=== PATIENT | male | born 1950 | race Caucasian/White ===

== ENCOUNTER 2020-07-07 09:01 | Outpatient (CLI) | payer MEDICARE, OTHER, SELFPAY ==
--- NOTE | 2020-07-07 09:04 | CT_ITS ---
WS: [id number] LDCT LUNG CANCER SCREENING HISTORY: COPD/TOBACCO DEPENDENCE TECHNIQUE: Axial imaging performed from the apices to 1 cm below the costophrenic angles. Coronal and sagittal reformats are submitted with axial MIP series. All CT scans at [facility] use at least one of these dose optimization techniques: automated exposure control; mA and/or kV adjustment per patient size (includes targeted exams where dose is matched to clinical indication); or iterativ e reconstruction. DLP: 55.26 mGy.cm DIvol: 1.52 mGy COMPARISON: None available. Diagnostic quality: Satisfactory Lung Nodules: Large spiculated LEFT hilar soft tissue mass. Spiculated mass centered at the LEFT hilu m extending into the LEFT upper lobe measures 5.5 x 3.3 cm and extends over a length of 3.6 cm. Mass abuts the mid fissure. There is a component that extends into the LEFT upper lobe. There is encasemen t and mild narrowing of the proximal LEFT upper lobe bronchus. No postobstructive atelectasis. Increa sed soft tissue thickening and nodularity extends along the proximal LEFT lower lobe bronchovascular structures. Lungs: Chronic emphysema. No additional nodules are evident. No pleural effusion. Heart: Normal size. Minimal coronary artery calcification. Other findings: Mild atherosclerosis aorta. Pulmonary artery size is equal to the aorta. Mild fullnes s at the RIGHT hilum. Mild RIGHT convex curvature thoracolumbar spine. CT/CT lung screening [id number] IMPRESSION: LUNG-RADS: 4B-Suspicious FOLLOW UP: See Report Recommend follow-up chest CT with IV contrast, PET/CT imaging and pulmonary con sult with bronchoscopy. These findings are very suspicious for neoplasm and pos sible hilar adenopathy. OTHER FINDINGS (S MODIFIER): None.
== END 2020-07-07 09:02 | disposition home or self-care (01) ==
LOC: CT 09:02
PROVIDERS: PCP Internal Medicine; Visit Provider Internal Medicine
DX: Z12.2 Encounter for screening for malignant neoplasm of respiratory organs (principal); F17.201 Nicotine dependence, unspecified, in remission; J44.9 Chronic obstructive pulmonary disease, unspecified
CPT/HCPCS: G0297

== ENCOUNTER 2020-07-08 08:54 | Emergency (ER) | payer MEDICARE, OTHER, SELFPAY ==
[2020-07-08 08:54] VITALS: BP 111/65; PULSE 65; RESP 18; TEMP 36.3; O2SAT 99; BMI 28.1
--- NOTE | 2020-07-08 08:58 | CT_ITS ---
WS: [id number] CT CHEST WITH INTRAVENOUS CONTRAST HISTORY: lung mass on screening CT chest TECHNIQUE: Contiguous 5 mm axial imaging performed on the thorax. Coronal and sagittal reformats are submitted. All CT scans at [facility] use at least one of these dose optimization techniq ues: automated exposure control; mA and/or kV adjustment per patient size (includes targeted exams wh ere dose is matched to clinical indication); or iterative reconstruction. CONTRAST: Visipaque 320; 95 mL IV. DLP: 756.43 mGy.cm COMPARISON: 07/07/2020. Lungs and central airway: Soft tissue mass centered over the LEFT hilum extending into the LEFT upper lobe. Soft tissue mass partially encases and narrows LEFT upper lobe bronchus and nearly completely encases the proximal LEFT lower lobe pulmonary artery. Mass measures 5.1 x 3.3 cm and extends over a length of 3.7 cm. Margins are spiculated. No additional pulmonary mass or nodule. Moderate emphysema. Pleura: Normal. No pleural effusion. Heart and pericardium: Normal size heart with no pericardial effusion. Mediastinum and sola: Otherwise small mediastinal and hilar lymph nodes. No adenopathy. Vessels: Mild atherosclerosis aorta. Normal size pulmonary artery. Mild coronary artery atheroscleros is. Chest wall and lower neck: No soft tissue masses. Upper abdomen: Several large low-attenuation masses in the liver. The largest in the posterior RIGHT lobe of the liver measures 8.2 x 9.2 cm. This mass abuts the diaphragmatic surface. There is a smalle r posterior diaphragmatic mass. More anteriorly in the LEFT medial lobe measures 5.2 x 4.0 cm mass. T hese masses are are displacing the adjacent vascular structure and suspicious for metastatic lesions. The visualized adrenal glands are negative. Osseous structures: S-shaped curvature thoracolumbar spine. CT/CT chest w con* [id number] IMPRESSION: 1. Large spiculated neoplastic mass LEFT upper lobe centered close to the hilu m measures 5.1 x 3.3 x 3.7 cm. Most likely due to lung cancer. Recommend bronch oscopy for further evaluation. 2. Several large hypoattenuating masses in the liver suspicious for metastatic disease. 3. Chronic emphysema.
--- NOTE | 2020-07-08 09:01 | W.ED.SYNCOPE ---
HPI - Syncope General: Chief Complaint: Syncope Stated Complaint: SOB/SYNCOPAL EPISODE Time Seen by Provider: 07/08/20 08:55 History of Present Illness: HPI narrative: 69-year-old male who was at his primary care doctor's office he recently had a screening CT scan of the chest. On this they found a 5 x 3 x 3 left hilar mass he was informed of this this morning and had a vasovagal episode after apnea loss of control of urine. There is no tonic-clonic seizure movements he is not postictal according to Dr. Lomeli at the office. He was directed here for further evaluation this morning. MD complaint: loss of consciousness Onset (ago): minute(s) Prodromal symptoms: heart racing Witnessed: Yes - by Bystander Context: at rest Associated symptoms: Deny abdominal pain, chest pain, fever(s) or nausea History: other (recent dx of lung mass) Treatments prior to arrival: none Review of Systems Const: Denies: fever(s), chills, body aches, change in appetite, fatigue or malaise ENMT: Denies: throat pain, ear or mastoid pain, nasal discharge or nasal congestion Card: Denies: chest pain, edema, dyspnea on exertion or orthopnea Resp: Denies: dyspnea, productive cough or non-productive cough GI: Denies: abdominal pain, nausea, vomiting, hematemesis, coffee ground emesis, diarrhea, constipation, bloating, hematochezia or melena : Denies: flank pain, dysuria, urinary frequency or urinary urgency Skin/Breast: Denies: rash or pruritus Physical Exam Const: COMMON NORMALS: no acute distress GENERAL APPEARANCE: cooperative and comfortable ORIENTATION/CONSCIOUSNESS: Yes awake, Yes oriented to person, Yes oriented to place and Yes oriented to time HENMT: COMMON NORMALS: normocephalic, atraumatic and hearing grossly normal bilaterally HEAD & SCALP: normocephalic and atraumatic Neck/C-Spine: COMMON NORMALS: no JVD Resp: COMMON NORMALS: normal respiratory effort, No retractions, No use of accessory muscles and clear to auscultation bilaterally AUSCULTATION: clear to auscultation bilaterally Cardio: COMMON NORMALS: no JVD, regular rate, regular rhythm and No murmurs present (Cardio) RATE: regular rate RHYTHM: regular rhythm GI: COMMON NORMALS: Soft to palpation and No hepatosplenomegaly present AUSCULTATION: Yes normoactive bowel sounds PALPATION: Yes Soft to palpation, No Tenderness to palpation present (GI), No Guarding due to palpation present (GI) and Yes No hepatosplenomegaly present Extremity: COMMON NORMALS: normal to inspection, capillary refill normal, no clubbing, cyanosis or edema, no calf tenderness and no pedal edema Neuro: SENSORIUM/ORIENTATION: Yes oriented to person, Yes oriented to place and Yes oriented to time Skin: COMMON NORMALS: no rashes or lesions noted GENERAL SKIN EXAM: no rashes or lesions noted Course Vital Signs: Vital signs: Vital Signs Temperature 97.4 F L 07/08/20 08:54 Pulse Rate 80 07/08/20 12:30 Respiratory Rate 20 H 07/08/20 12:30 Blood Pressure 118/84 07/08/20 12:30 Pulse Oximetry 97 07/08/20 12:30 MDM - Syncope MDM Narrative: Medical decision making narrative: Reviewed with the patient and believe he has mets to the liver as well he will need bronchoscopy as per recommendation of the CT we made an appointment with him through her case management director with Dr. jax Ospina. He is otherwise feeling a little better now he like to go home suspect he had a vasovagal episode at his doctor's office over the stress of the diagnosis. If he has any further problems return to the emergency room. Lab Data: Labs: Lab Results 07/08/20 07/08/20 Range/Units 09:58 09:58 WBC 7.9 (4.0-10.0) 10^3/ uL RBC 4.42 (4.1-5.3) 10^6/u L Hgb 12.8 (11.7-16.6) g/dL Hct 40.8 L (42.0-52.0) % MCV 92.3 (80-94) fL MCH 29.0 (28.0-34.0) pg MCHC 31.4 (30.0-36.0) g/dL RDW 11.9 L (12.1-15.1) % Plt Count 183 (130-400) 10^3/c mm MPV 8.5 (7.4-10.4) fL Neut % (Auto) 57.0 % Lymph % (Auto) 29.9 % Payne % (Auto) 8.8 % Eos % (Auto) 2.0 % Baso % (Auto) 0.8 % Neut # (Auto) 4.49 (1.8-7.7) 10^3/u L Lymph # (Auto) 2.4 (0.8-4.8) 10^3/u L Payne # (Auto) 0.7 (0.2-0.9) 10^3/u L Eos # (Auto) 0.2 (0.0-0.8) 10^3/u L Baso # (Auto) 0.1 (0.0-0.1) 10^3/u L Nucleated RBC % (a uto) 0 % Nucleated RBCs # 0.0 /100WBC Sodium 133 L (136-145) mmol/L Potassium 3.8 (3.5-5.1) mmol/L Chloride 97 L (98-107) mmol/L Carbon Dioxide 24 (22-29) mmol/L Anion Gap 15.8 (5-19) BUN 10 (8-23) mg/dL Creatinine 1.4 H (0.7-1.2) mg/dL GFR Calculation 50.5 L (90-130) mL/min Glucose 79 (65-115) mg/dL Calculated Osmolal ity 274 L (285-295) mOsm/k g Calcium 9.0 (8.5-10.5) mg/dL Total Bilirubin 0.8 (0.15-1.2) mg/dL AST 115 H (0-40) U/L ALT 96 H (0-41) U/L Alkaline Phosphata se 406 H (40-130) IU/L Total Protein 6.5 L (6.6-8.7) g/dL Albumin 3.6 (3.5-5.2) g/dL Globulin 2.9 (1.3-4.6) g/dL Discharge Plan Discharge Patient Disposition: Home Clinical Impression: Vasovagal syncope, Metastatic lung cancer (metastasis from lung to other site) Condition: Stable Prescriptions: No Action desmopressin 0.2 mg Tablet See Rx Instructions .ROUTE .COMPLEX RF: 0 levothyroxine 75 mcg Tablet 75 mcg PO DAILY RF: 0 hydrocortisone 10 mg Tablet See Rx Instructions .ROUTE .COMPLEX RF: 0 testosterone cypionate 200 mg/mL Oil See Rx Instructions .ROUTE .COMPLEX RF: 0 Tylenol PM Extra Strength 25-500 mg Tablet 2 tab PO BEDTIME PRN (Reason: UNKNOWN) RF: 0 Zoloft 50 mg Tablet 50 mg PO DAILY RF: 0 Vitamin D3 50 mcg (2,000 unit) Tablet 50 mcg PO DAILY RF: 0 Prevagen 1 tab PO DAILY RF: 0 Discharge Orders: Discharge Order (Routine); Ordered 07/08/20 Ordered By: Sacha Sung Referrals: Cece Yang MD [Primary Care Provider] - Activity Restrictions/Additional Instructions: You have an appointment with Dr. jax Ospina the wine maker on July 10 at 12[address] [facility] [place] at [facility]. Discharge Date/Time: 07/08/20 12:50 Coding Level of Care Code ED Stem Mounter for Chg Fwd Exam Comprehensive
[2020-07-08 10:03] LABS: Basophils # 0.1 10^3/uL (0.0-0.1); Basophils % 0.8 %; Eosinophils # 0.2 10^3/uL (0.0-0.8); Hematocrit 40.8 % (42.0-52.0); Hemoglobin 12.8 g/dL (11.7-16.6); Lymphocytes # 2.4 10^3/uL (0.8-4.8); Lymphocytes % 29.9 %; Mean Corpuscular HGB Conc 31.4 g/dL (30.0-36.0); Mean Corpuscular Volume 92.3 fL (80-94); Mean Platelet Volume 8.5 fL (7.4-10.4); Monocytes # 0.7 10^3/uL (0.2-0.9); Monocytes % 8.8 %; Neutrophils # 4.49 10^3/uL (1.8-7.7); Nucleated Red Blood Cells % 0 %; Platelet Count 183 10^3/cmm (130-400); Red Blood Count 4.42 10^6/uL (4.1-5.3); Red Cell Distribution Width 11.9 % (12.1-15.1); White Blood Count 7.9 10^3/uL (4.0-10.0)
[2020-07-08 10:20] LABS: Alanine Aminotransferase 96 U/L (0-41); Albumin Level 3.6 g/dL (3.5-5.2); Alkaline Phosphatase 406 IU/L (40-130); Anion Gap 15.8 (5-19); Aspartate Amino Transferase 115 U/L (0-40); Blood Urea Nitrogen 10 mg/dL (8-23); Carbon Dioxide 24 mmol/L (22-29); Chloride 97 mmol/L (98-107); Globulin 2.9 g/dL (1.3-4.6); Glomerular Filtration Rate 50.5 mL/min (90-130); Glucose 79 mg/dL (65-115); Osmolality Calculated 274 mOsm/kg (285-295); Potassium 3.8 mmol/L (3.5-5.1); Sodium 133 mmol/L (136-145); Total Bilirubin 0.8 mg/dL (0.15-1.2); Total Protein 6.5 g/dL (6.6-8.7)
[2020-07-08] MEDS: iodixanol 320 mg/mL 100mL Btl IV (10:38)
--- NOTE | 2020-07-08 10:42 | CT_ITS ---
WS: [id number] CT HEAD NONCONTRAST HISTORY: AMS/ LOC TECHNIQUE: Contiguous axial imaging performed through the brain in 2.5 mm imaging. Bone and soft tiss ue windows. Sagittal and coronal reformats reviewed. All CT scans at [facility] use at ast one of these dose optimization techniques: automated exposure control; mA and/or kV adjustment pe r patient size (includes targeted exams where dose is matched to clinical indication); or iterative r econstruction. DLP: 780.3 mGy.cm COMPARISON: 06/22/[address] was performed after IV contrast injection. Small areas of hemorrhage may be obscured by the contrast. Small lacunar infarct LEFT basal ganglia. Small lacunar infarct in the RIGHT caudate body. Mild atrophy. Mild chronic microvascular ischemic disease. Ventricles: Mildly enlarged ventricles. Patient is status post transsphenoidal resection of the pituitary gland. Sella turcica is empty. Paranasal sinuses: Mild mucoperiosteal thickening in the sphenoid sinuses. Dense inspissated material in the RIGHT sphenoid sinus with calcification. Selective 2012 a mild progression suggesting chronic sinusitis. Mastoid air cells: Well pneumatized. Calvarium and scalp: Skull is intact with no soft tissue edema or swelling. Heavy calcification in the vertebral arteries and intracranial carotid arteries. CT/CT head wo con* [id number] IMPRESSION: 1. Mild atrophy and chronic ischemic disease. 2. Small lacunar infarcts in the LEFT basal ganglia. 3. Transsphenoidal resection of pituitary gland.
--- NOTE | 2020-07-08 10:45 | DCPLANNER ---
sponsorship manager was asked to schedule a follow up appointment for patient with pulmonology. sponsorship manager called [facility], spoke Carolin, gave clinic patients information. A follow up appointment was scheduled for , July 10, 2020 at 12:[address] Beckham. sponsorship manager informed ED physician of the scheduled appointment.
[2020-07-08 12:30] VITALS: BP 118/84; PULSE 80; RESP 20; O2SAT 97
--- NOTE | 2020-07-08 12:35 | PC.NURSE ---
iv removed in rac. catheter intact pressure dressing applied with instructions to remove.
--- NOTE | 2020-08-01 17:59 | DCPLANNER ---
Patient had a follow up appointment scheduled for 07.10.20 with [facility] - appointment was cancelled.
== END 2020-07-08 12:50 | disposition home or self-care (01) ==
PROVIDERS: Emergency Provider Family Medicine; PCP Internal Medicine
DX: R55 Syncope and collapse (principal); C34.90 Malignant neoplasm of unspecified part of unspecified bronchus or lung; C79.9 Secondary malignant neoplasm of unspecified site
CPT/HCPCS: 12345; 36415; 70450; 71260; 80053; 85025; 99281; 99283; Q9967

== ENCOUNTER 2020-07-18 09:57 | Outpatient (CLI) | payer MEDICARE, OTHER, SELFPAY ==
[2020-07-17 14:36] VITALS: BMI 27.8
[2020-07-18] VITALS (8 sets, daily range): BP systolic 120–146; BP diastolic 74–88; PULSE 53–69; RESP 16–20; TEMP 36.2–36.3; O2SAT 97–100
--- NOTE | 2020-07-18 10:42 | US_ITS ---
WS: [id number] Ultrasounded guided biopsy of right lobe of liver lesion, 07/18/2020 Clinical Data: LUNG MASS, liver mass. Comparison: PET scan, 07/12/2020. Findings: The patient was informed of the procedure and possible complications. Then an intercostal space was c leansed with alcohol. A 30-gauge needle filled with 5 mL of 1% lidocaine with epinephrine infiltrated the skin and the subcutaneous tissues on the right side of the abdomen. A small incision was made at the site of the infiltration. An 18-gauge Bard biopsy device was used to obtain 3 samples from the l arge lesion in the right lobe of the liver. The samples were placed into formalin and submitted to [facility] for analysis.. The patient experienced no complications. US/US biopsy liver [id number] Impression: Satisfactory ultrasound-guided biopsy of lesion of right lobe of the liver.
[2020-07-18] MEDS: sodium chloride 0.9% 1,000 ML 30 ML IV (11:32)
[2020-07-18 11:59] LABS: INR 0.99 (0.8-1.2)
[2020-07-18] MEDS: fentaNYL 50 mcg/mL INJ 2mL 25 MCG IVP ×2 (12:15→12:22)
[2020-07-18] MEDS: midazolam 1 mg/mL INJ 2 mL IVP ×2 (12:16→12:22)
[2020-08-25 10:47] LABS: PD-L1 (Clone 22C3) by IHC BBPL See Report
== END 2020-07-18 09:58 | disposition home or self-care (01) ==
PROVIDERS: Radiology Neuroradiology; PCP Internal Medicine; Visit Provider Internal Medicine
DX: R91.8 Other nonspecific abnormal finding of lung field (principal); R16.0 Hepatomegaly, not elsewhere classified
CPT/HCPCS: 36415; 47000; 76942; 85610; 88307; 88342; 96374; 96375; J2250; J3010; J7030

== ENCOUNTER 2020-07-18 14:23 | Emergency (ER) | payer MEDICARE, OTHER, SELFPAY ==
--- NOTE | 2020-07-18 14:28 | CT_ITS ---
WS: [id number] CT scan of the chest With IV contrast, CT scan of the abdomen and pelvis with IV contrast and witho ut oral contrast. Additional two-dimensional coronal and sagittal reconstruction was performed. 2019 Clinical Data: syncope Comparison: CT chest, 07/08/2020. DLP: 2462.[address] scans at [facility] use at least one of these dose optimization techniques: automat ed exposure control; mA and/or kV adjustment per patient size (includes targeted exams where dose is matched to clinical indication); or iterative reconstruction. Findings: Chest: The 5 cm mass in the left hilum extending into the midportion of the left lung has not changed. It is narrowing the left lower lobe bronchus. The right lung is not remarkable. No pneumonia or pneumothor ax is seen. The heart size is normal with no pericardial effusion. The trachea bifurcates normally into the bronc hi. The pulmonary arterial system and thoracic aorta demonstrate no abnormalities or dilatations. There is no axillary or significant mediastinal adenopathy. Abdomen/pelvis: The liver demonstrates several hypoattenuating masses. The large, 8.7 cm mass in the posterior aspect of the right lobe was biopsied and there is a small amount of air in this mass. No evidence of an in trahepatic hematoma is seen. There is no perihepatic ascites. The gallbladder, spleen, adrenal glands and pancreas are normal. The kidneys show equal bilateral contrast excretion with no cyst or masses. The abdominal aorta is normal in size. No appendicitis or diverticulitis is seen. The stomach, small bowel and colon are not remarkable. No abscess, adenopathy, ascites mass, obstruction or free air is seen. The bladder is unremarkable. No inguinal hernia is seen. There is a dextroscoliosis of the lower thoracic spine and a levoscoliosis of the lumbar spine. There is a left hip arthroplasty. CT/CT chest abd pel w con* Impression: 1. No change in left hilar mass. 2. Negative for pneumothorax. 3. Multiple low density lesions in the liver but no evidence of an intrahepatic hematoma or perihepatic ascites
--- NOTE | 2020-07-18 14:36 | ECG_ITS ---
[facility] Test Date: 2020-07-18 Pat Name: Pernell Watson Department: Room: Gender: Male Size Painter: : 1950 Requested By: Adele Kim Order Number: [id number] Jalyn MD: Albert Mendoza M.D. Measurements Intervals [place] Rate: 52 P: 59 AL: 158 QRS: 32 QRSD: 99 T: 83 QT: 509 QTc: 475 Interpretive Statements SINUS BRADYCARDIA MINIMAL ST DEPRESSION [0.025+ mV ST DEPRESSION] PROLONGED QT INTERVAL No previous ECG available for comparison Electronically Signed On 07-18-2020 18:37:14 CDT by Albert Mendoza M.D. [email or web address]
[2020-07-18] MEDS: iodixanol 320 mg/mL 100mL Btl IV (14:40)
[2020-07-18 14:47] VITALS: BP 120/48; PULSE 57; RESP 8; TEMP 36.4; O2SAT 100; BMI 29.6
[2020-07-18 14:54] LABS: Basophils # 0.1 10^3/uL (0.0-0.1); Basophils % 0.6 %; Eosinophils % 0.2 %; Hematocrit 37.9 % (42.0-52.0); Lymphocytes # 1.1 10^3/uL (0.8-4.8); Lymphocytes % 11.3 %; Mean Corpuscular HGB Conc 31.7 g/dL (30.0-36.0); Mean Corpuscular Hemoglobin 28.5 pg (28.0-34.0); Mean Platelet Volume 8.8 fL (7.4-10.4); Monocytes # 0.6 10^3/uL (0.2-0.9); Monocytes % 5.9 %; Neutrophils # 8.12 10^3/uL (1.8-7.7); Neutrophils % 80.9 %; Nucleated Red Blood Cells % 0 %; Platelet Count 233 10^3/cmm (130-400); Red Blood Count 4.21 10^6/uL (4.1-5.3); Red Cell Distribution Width 11.9 % (12.1-15.1)
[2020-07-18 14:56] VITALS: BP 120/48; PULSE 55; RESP 16; O2SAT 96
[2020-07-18 14:58] LABS: INR 0.95 (0.8-1.2)
[2020-07-18 15:00] LABS: Alanine Aminotransferase 88 U/L (0-41); Albumin Level 3.6 g/dL (3.5-5.2); Alkaline Phosphatase 460 IU/L (40-130); Anion Gap 16.1 (5-19); Aspartate Amino Transferase 94 U/L (0-40); Blood Urea Nitrogen 10 mg/dL (8-23); Calcium 8.8 mg/dL (8.5-10.5); Carbon Dioxide 23 mmol/L (22-29); Chloride 96 mmol/L (98-107); Glomerular Filtration Rate 66.8 mL/min (90-130); Glucose 107 mg/dL (65-115); Lipase 41 U/L (13-60); Osmolality Calculated 272 mOsm/kg (285-295); Potassium 4.1 mmol/L (3.5-5.1); Sodium 131 mmol/L (136-145); Total Bilirubin 0.5 mg/dL (0.15-1.2); Total Protein 5.6 g/dL (6.6-8.7)
[2020-07-18 15:01] LABS: Lactic Sepsis W/Reflex 1.7 mmol/L (0.5-2.2); Troponin(5th) Baseline 11 ng/L (0-15)
--- NOTE | 2020-07-18 15:03 | ED_ITS ---
HPI - Altered Mental Status General: Chief Complaint: Altered Mental Status Stated Complaint: decreased responsiveness Time Seen by Provider: 07/18/20 14:25 History of Present Illness: HPI narrative: 69-year-old male came to the emergency room after 30 minutes prior having a liver biopsy. On arrival he collapsed I was called to the bedside in a hallway bed patient was poorly responsive Dr. Coburn and I attended to him he had an acute abdomen and he was taken directly to CT. Initially he was not able to answer any questions. When I seen him after the CT was done he recalls having the liver biopsy done he is having some right upper quadrant discomfort in the area of the biopsy he is not having any chest pain and he is not having any difficulty breathing. He was recently diagnosed with lung cancer MD complaint: confusion and decreased responsiveness Onset (ago): minute(s) Severity: moderate Consistency of symptoms: Waxing and Waning Context: history of similar presentation and COPD Associated symptoms: Reports depression; Deny auditory hallucinations, visual hallucinations, delusions, homicidal ideation, racing thoughts or suicidal ideation Review of Systems Const: Denies: fever(s), chills, body aches, change in appetite, fatigue or malaise ENMT: Denies: throat pain, ear or mastoid pain, nasal discharge or nasal congestion Card: Denies: chest pain, edema, dyspnea on exertion or orthopnea Resp: Denies: dyspnea, productive cough or non-productive cough GI: Denies: abdominal pain, nausea, vomiting, hematemesis, coffee ground emesis, diarrhea, constipation, bloating, hematochezia or melena : Denies: flank pain, dysuria, urinary frequency or urinary urgency Skin/Breast: Denies: rash or pruritus Psych: Reports: depression; Denies: visual hallucinations, auditory hallucinations, suicidal ideation or homicidal ideation [facility] ED PFSH: Medical History (Updated 07/21/20 @ 14:05 by Sacha Sung DO) COPD (chronic obstructive pulmonary disease) Lung mass Syncope Surgical History (Updated 07/21/20 @ 14:05 by Sacha Sung DO) Hx of hernia repair Social History Smoking and tobacco status: former smoker Quit status (tobacco): has quit using tobacco Second hand smoke exposure: No Smoking risk assessment/counseling performed?: No Physical Exam Const: COMMON NORMALS: no acute distress GENERAL APPEARANCE: cooperative and comfortable ORIENTATION/CONSCIOUSNESS: Yes awake, Yes oriented to person, Yes oriented to place and Yes oriented to time HENMT: COMMON NORMALS: normocephalic, atraumatic, hearing grossly normal bilaterally, external ears normal, EAC's normal, TM's normal bilaterally, Normal nasal mucous membranes and turbinates present, moist oral mucous membranes and oropharynx normal HEAD & SCALP: normocephalic and atraumatic NOSE: Normal nasal mucous membranes and turbinates present EXTERNAL EAR: Yes external ears normal EXTERNAL AUDITORY CANAL: EAC's normal TYMPANIC MEMBRANE: TM's normal bilaterally Eye: COMMON NORMALS: Equal, round and reactive pupils present, EOMs intact b ilaterally, conjunctivae normal and no scleral icterus CONJUNCTIVA: Yes conjunctivae normal PUPIL: Yes Equal, round and reactive pupils present Neck/C-Spine: COMMON NORMALS: full ROM, no lymphadenopathy, supple and no JVD Lymph: LYMPHATIC: no lymphadenopathy noted and no lymphedema noted Resp: COMMON NORMALS: normal respiratory effort, No retractions, No use of accessory muscles and clear to auscultation bilaterally AUSCULTATION: clear to auscultation bilaterally Cardio: COMMON NORMALS: no JVD, regular rate, regular rhythm and No murmurs present (Cardio) RATE: regular rate RHYTHM: regular rhythm GI: COMMON NORMALS: Soft to palpation and No hepatosplenomegaly present AUSCULTATION: Yes normoactive bowel sounds PALPATION: Yes Soft to palpation, No Tenderness to palpation present (GI), No Guarding due to palpation present (GI) and Yes No hepatosplenomegaly present Extremity: COMMON NORMALS: normal to inspection, capillary refill normal, no clubbing, cyanosis or edema, no calf tenderness and no pedal edema Neuro: SENSORIUM/ORIENTATION: Yes oriented to person, Yes oriented to place and Yes oriented to time Psych: THOUGHT CONTENT: No delusions Skin: COMMON NORMALS: no rashes or lesions noted GENERAL SKIN EXAM: no rashes or lesions noted Course Vital Signs: Vital signs: Vital Signs Temperature 97.5 F L 07/18/20 14:47 Pulse Rate 53 L 07/18/20 18:40 Respiratory Rate 21 H 07/18/20 18:40 Blood Pressure 112/74 07/18/20 18:40 Pulse Oximetry 98 07/18/20 18:40 MDM - Altered Mental Status MDM Narrative: Medical decision making narrative: She had a similar presentat ion previously he completely is woken up we are initially concerned he may have had bleeding from his liver biopsy CT was negative. After time he was able to ambulate without difficulty he is anxious to go home he has had similar syncopal episodes when he has gotten highly stressful news such as recent diagnosis of lung cancer. As per his wishes will not discharge him home if he has any problems return immediately Lab Data: Labs: Lab Results 07/18/20 07/18/20 07/18/20 Range/Units 14:25 14:25 14:25 WBC 10.0 (4.0-10.0) 10^3/ uL RBC 4.21 (4.1-5.3) 10^6/u L Hgb 12.0 (11.7-16.6) g/dL Hct 37.9 L (42.0-52.0) % MCV 90.0 (80-94) fL MCH 28.5 (28.0-34.0) pg MCHC 31.7 (30.0-36.0) g/dL RDW 11.9 L (12.1-15.1) % Plt Count 233 (130-400) 10^3/c mm MPV 8.8 (7.4-10.4) fL Neut % (Auto) 80.9 % Lymph % (Auto) 11.3 % [place] % (Auto) 5.9 % Eos % (Auto) 0.2 % Baso % (Auto) 0.6 % Neut # (Auto) 8.12 H (1.8-7.7) 10^3/u L Lymph # (Auto) 1.1 (0.8-4.8) 10^3/u L [place] # (Auto) 0.6 (0.2-0.9) 10^3/u L Eos # (Auto) 0.0 (0.0-0.8) 10^3/u L Baso # (Auto) 0.1 (0.0-0.1) 10^3/u L Nucleated RBC % (a uto) 0 % Nucleated RBCs # 0.0 /100WBC PT 12.90 (12.1-14.9) SECO NDS INR 0.95 (0.8-1.2) Sodium 131 L (136-145) mmol/L Potassium 4.1 (3.5-5.1) mmol/L Chloride 96 L (98-107) mmol/L Carbon Dioxide 23 (22-29) mmol/L Anion Gap 16.1 (5-19) BUN 10 (8-23) mg/dL Creatinine 1.1 (0.7-1.2) mg/dL GFR Calculation 66.8 L (90-130) mL/min Glucose 107 (65-115) mg/dL Calculated Osmolal ity 272 L (285-295) mOsm/k g Lactic Acid (0.5-2.2) mmol/L Calcium 8.8 (8.5-10.5) mg/dL Total Bilirubin 0.5 (0.15-1.2) mg/dL AST 94 H (0-40) U/L ALT 88 H (0-41) U/L Alkaline Phosphata se 460 H (40-130) IU/L Troponin T Baselin e (0-15) ng/L Troponin T 120 Min [place] (0-15) ng/L Delta Troponin T (0-10) ABS# Total Protein 5.6 L (6.6-8.7) g/dL Albumin 3.6 (3.5-5.2) g/dL Globulin 2.0 (1.3-4.6) g/dL Lipase 41 (13-60) U/L Blood Type Rho(D) Type Antibody Screen Crossmatch 07/18/20 07/18/20 07/18/20 Range/Units 14:25 14:25 14:25 WBC (4.0-10.0) 10^3/ uL RBC (4.1-5.3) 10^6/u L Hgb (11.7-16.6) g/dL Hct (42.0-52.0) % MCV (80-94) fL MCH (28.0-34.0) pg MCHC (30.0-36.0) g/dL RDW (12.1-15.1) % Plt Count (130-400) 10^3/c mm MPV (7.4-10.4) fL Neut % (Auto) % Lymph % (Auto) % [place] % (Auto) % Eos % (Auto) % Baso % (Auto) % Neut # (Auto) (1.8-7.7) 10^3/u L Lymph # (Auto) (0.8-4.8) 10^3/u L [place] # (Auto) (0.2-0.9) 10^3/u L Eos # (Auto) (0.0-0.8) 10^3/u L Baso # (Auto) (0.0-0.1) 10^3/u L Nucleated RBC % (a uto) % Nucleated RBCs # /100WBC PT (12.1-14.9) SECO NDS INR (0.8-1.2) Sodium (136-145) mmol/L Potassium (3.5-5.1) mmol/L Chloride (98-107) mmol/L Carbon Dioxide (22-29) mmol/L Anion Gap (5-19) BUN (8-23) mg/dL Creatinine (0.7-1.2) mg/dL GFR Calculation (90-130) mL/min Glucose (65-115) mg/dL Calculated Osmolal ity (285-295) mOsm/k g Lactic Acid 1.7 (0.5-2.2) mmol/L Calcium (8.5-10.5) mg/dL Total Bilirubin (0.15-1.2) mg/dL AST (0-40) U/L ALT (0-41) U/L Alkaline Phosphata se (40-130) IU/L Troponin T Baselin e 11 (0-15) ng/L Troponin T 120 Min [place] (0-15) ng/L Delta Troponin T (0-10) ABS# Total Protein (6.6-8.7) g/dL Albumin (3.5-5.2) g/dL Globulin (1.3-4.6) g/dL Lipase (13-60) U/L Blood Type A Positive Rho(D) Type Positive Antibody Screen Negative Crossmatch See Detail 07/18/20 Range/Units 16:43 WBC (4.0-10.0) 10^3/ uL RBC (4.1-5.3) 10^6/u L Hgb (11.7-16.6) g/dL Hct (42.0-52.0) % MCV (80-94) fL MCH (28.0-34.0) pg MCHC (30.0-36.0) g/dL RDW (12.1-15.1) % Plt Count (130-400) 10^3/c mm MPV (7.4-10.4) fL Neut % (Auto) % Lymph % (Auto) % [place] % (Auto) % Eos % (Auto) % Baso % (Auto) % Neut # (Auto) (1.8-7.7) 10^3/u L Lymph # (Auto) (0.8-4.8) 10^3/u L [place] # (Auto) (0.2-0.9) 10^3/u L Eos # (Auto) (0.0-0.8) 10^3/u L Baso # (Auto) (0.0-0.1) 10^3/u L Nucleated RBC % (a uto) % Nucleated RBCs # /100WBC PT (12.1-14.9) SECO NDS INR (0.8-1.2) Sodium (136-145) mmol/L Potassium (3.5-5.1) mmol/L Chloride (98-107) mmol/L Carbon Dioxide (22-29) mmol/L Anion Gap (5-19) BUN (8-23) mg/dL Creatinine (0.7-1.2) mg/dL GFR Calculation (90-130) mL/min Glucose (65-115) mg/dL Calculated Osmolal ity (285-295) mOsm/k g Lactic Acid (0.5-2.2) mmol/L Calcium (8.5-10.5) mg/dL Total Bilirubin (0.15-1.2) mg/dL AST (0-40) U/L ALT (0-41) U/L Alkaline Phosphata se (40-130) IU/L Troponin T Baselin e (0-15) ng/L Troponin T 120 Min [place] 13.56 (0-15) ng/L Delta Troponin T 2.56 (0-10) ABS# Total Protein (6.6-8.7) g/dL Albumin (3.5-5.2) g/dL Globulin (1.3-4.6) g/dL Lipase (13-60) U/L Blood Type Rho(D) Type Antibody Screen Crossmatch Discharge Plan Discharge Patient Disposition: Home Clinical Impression: Syncope, Lung cancer Condition: Stable Prescriptions: No Action desmopressin 0.2 mg Tablet See Rx Instructions .ROUTE .COMPLEX RF: 0 levothyroxine 75 mcg Tablet 75 mcg PO DAILY RF: 0 hydrocortisone 10 mg Tablet See Rx Instructions .ROUTE .COMPLEX RF: 0 testosterone cypionate 200 mg/mL Oil See Rx Instructions .ROUTE .COMPLEX RF: 0 diphenhydramine-acetaminophen [Tylenol PM Extra Strength] 25-500 mg Tablet 2 tab PO BEDTIME PRN (Reason: Pain) RF: 0 sertraline [Zoloft] 50 mg Tablet 50 mg PO DAILY RF: 0 cholecalciferol (vitamin D3) [Vitamin D3] 50 mcg (2,000 unit) Tablet 50 mcg PO DAILY RF: 0 Prevagen 1 tab PO DAILY RF: 0 Discharge Orders: Discharge Order (Routine); Ordered 07/18/20 Ordered By: Sacha Sung Referrals: Cece Yang MD [Primary Care Provider] - Discharge Diet: Usual diet Discharge Activity: Increase activity as tolerated Discharge Date/Time: 07/18/20 18:44 Coding Level of Care Code ED Chief Of Service for Aurelia Anthony
--- NOTE | 2020-07-18 16:36 | ECG_ITS ---
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 Measurements Intervals [place] Rate: 50 P: 57 MA: 140 QRS: 12 QRSD: 101 T: 83 QT: 506 QTc: 462 Interpretive Statements SINUS BRADYCARDIA NONSPECIFIC ST & T-WAVE ABNORMALITY PROLONGED QT INTERVAL Compared to ECG 07/18/2020 15:32:56 T-wave abnormality now present ST (T wave) deviation no longer present Electronically Signed On 07-18-2020 18:56:21 CDT by Albert Mendoza M.D. [email or web address]
[2020-07-18 17:12] LABS: Troponin 5 2HR 13.56 ng/L (0-15); Troponin 5 2HR Delta 2.56 ABS# (0-10)
[2020-07-18 18:40] VITALS: BP 112/74; PULSE 53; RESP 21; O2SAT 98
== END 2020-07-18 18:44 | disposition home or self-care (01) ==
PROVIDERS: Emergency Medicine; Emergency Provider Family Medicine; PCP Internal Medicine
DX: R55 Syncope and collapse (principal); C34.90 Malignant neoplasm of unspecified part of unspecified bronchus or lung; J44.9 Chronic obstructive pulmonary disease, unspecified; Z87.891 Personal history of nicotine dependence
CPT/HCPCS: 12345; 71260; 74177; 80053; 83605; 83690; 84484; 85025; 85610; 86850; 86900; 86920; 93005; 99283; 99284; P9016; Q9967

== ENCOUNTER 2020-08-06 13:59 | Outpatient (CLI) | payer OTHER, SELFPAY ==
--- NOTE | 2020-08-06 16:42 | ONC CON_ITS ---
Dr. Bella New Patient Note Patient: Pernell Watson Unit #: [id number]: 1950 Dicatated By: Rock Bella M.D.Date of Visit: Aug 06, 2020 Onc MED New Patient/Consult Referring Physician: Dr. SONIA SNOW M.D. Chief Complaint: Lung cancer. 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 He has been on long-term disability due to a work-related injury in 1987. 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 He has COPD associated with history of smoking up to 3 packs of cigarettes daily for 45 years. He did quit smoking 2 years ago. On 07/07/2020 he had a screening chest CT scan. It showed a spiculated mass centered at the left hilum and extending into the left upper lobe. It measured 5.5 x 3.3 cm and it was noted to abut the mid fissure. There was encasement and mild narrowing of the proximal left upper lobe bronchus. He was seen in the emergency room the following day, and a diagnostic chest CT at that time showed additional finding metastatic lesions in the liver, including a posterior right hepatic lobe lesion measuring 8.2 x 9.2 cm and a medial left hepatic lobe lesion measuring 5.2 x 4.0 cm. Staging PET/CT on 07/12/2020 showed FDG avid spiculated left upper lobe perihilar mass measuring 3.2 x 3.3 cm, SUV 21.0, with high probability of malignancy. An adjacent left hilar lymph node measuring 2.0 cm with SUV 18.4, consistent with metastatic disease. A centrally necrotic right hepatic mass measuring 7.3 x 9.9 cm had SUV 23.0 and a secondary mass in the hepatic segment 4b measuring 4.9 x 4.5 cm and SUV 19.2, consistent with hepatic metastatic disease. A 1 cm central mesenteric lymph node had SUV 5.0, metastatic disease not excluded. 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 He had seen Dr. Snow to discuss those results. At that point his overall condition had declined significantly, and in the setting of metastatic non-small cell lung cancer with poor performance status, he opted to just continue with symptomatic/supportive care. Subsequent to that visit he was encouraged by his family to seek treatment, and he is seen here today for further discussion of his treatment options. In the meantime, Dr. Snow had requested a PD-L1 expression on the biopsy, that result is pending. He does complain that his energy is very low now, and he has virtually no activity at home. His ECOG score is 3. Appetite is just fair. His weight is down at least 5 pounds. He has not had fever or night sweats. Does complain that his vision has been cloudy. He has shortness of breath, and he has had pressure as well as a little pain in his chest. He has a little bit of cough which is occasionally productive of yellow sputum. He has had no hemoptysis. He does complain of nausea. He was having loose stools with bowel incontinence, but more recently he has had constipation. Bladder function is been okay. He has pain in his back and in his legs and ankles, but that is chronic. He does not complain of headache. He has occasional lightheadedness. He has numbness in his feet. Past Medical History: His medical history includes anxiety, chronic obstructive pulmonary disease, depression, and ness-hypopituitarism. Past Surgical History: He underwent ultrasound directed needle biopsy of the liver on 07/18/2020. His other surgical/procedural history includes hernia repair, back surgery x3 in 2017, and hypophysectomy for benign tumor in 1997. Medications: Ativan 1 Tablet (of 0.5 mg) Oral q 4 hours PRN, Desmopressin Acetate 1 (0.2 mg) Tablet Oral b.i.d., Hydrocortisone 2 Tablet (of 10 mg) Oral b.i.d., Levothyroxine Sodium 1 (75 mcg) Tablet Oral daily Allergies: No Known Allergies. Social History: Mr. Watson is and he is a disabled. He has a history of smoking for 45 years, up to 3 packs of cigarettes daily. He quit smoking 2 years ago. He still chews 1 can of tobacco daily. Alcohol use is estimated at 1 ounce of whiskey every 2 days. Family History: Father at age 84, apparently of some type of head/neck cancer. Mother with lung cancer at age 67. A 63-year-old brother is in good health. Review Of Symptoms: Constitutional - His energy is very low. He reports this changed about a month ago. He is mainly sedentary. His appetite is not good. His weight is down at least 5 lbs. No fever, night sweats, or hot flashes. ECOG score is 3, Eyes - He reports visual changes. His vision is cloudy, ENMT - No sinus congestion/drainage. No mouth sores. No sore throat or difficulty swallowing, Hematologic/Lymphatic - He bruises easily, Respiratory - He has shortness of breath. He has a little bit of cough. He sometimes brings up yellow sputum. He also has a little bit of pain in the left chest. No hemoptysis, Cardiovascular - No angina pain. No palpitations, Gastrointestinal - He has nausea. No vomiting. No heartburn or acid reflux. He had been having loose stools and bowel incontinence, but recently he has had constipation. No blood in the stool or black stools. He's been having incontinence, Genitourinary (M) - No dysuria or hematuria. No urinary frequency. No urgency or incontinence, Musculoskeletal - He has chronic pain in his back, knees, and ankles, Integumentary - No skin complications, Neurologic - No headache. He has occasional dizziness. He has numbness and tingling in his feet. No other focal neurologic symptoms, Psychiatric - His anxiety and depression is adequately managed with lorazepam. No insomnia. Vital Signs: Performed on Aug 06, 2020 15:03: 0, 27.16, 1.95 sq.m, 68 in, 97 %, 83 /min, 18 /min, 124/75 mm(hg), 97.4 F (LOW), and 178.6 lbs (HIGH). Physical Examination: Constitutional - He appears generally weak and he has limited mobility, Eyes - Sclerae nonicteric. Conjunctivae clear, ENMT - No lesions noted in the oral cavity, Neck - No mass or thyromegaly, Hematologic/Lymphatic - No cervical, clavicular, or axillary adenopathy, Respiratory - Lungs are clear with diminished air movement bilaterally, Cardiovascular - Heart rhythm is regular. There is no murmur, gallop, or rub noted, Abdomen - Mildly distended and firm. Liver is not overtly enlarged or tender. Spleen is not palpable. There is no abdominal mass or ascites noted and there is no inguinal adenopathy, Back/Spine - No spine or CVA tenderness noted, Extremities - There is mild chronic swelling at the right ankle. There is otherwise no edema, Integumentary - No rashes. No suspicious skin lesions noted, Neurologic - No focal neurologic deficits noted. Impression: 1. Patient with non-small cell carcinoma lung cancer involving the left hilum/left upper lobe, stage IVB (T3, N1, M1c). 2. He underwent ultrasound directed needle biopsy of the liver on 07/18/2020. 3. He has poor performance status (ECOG 3). His other medical illnesses include: 4. COPD. 5. Panhypopituitarism following excision of benign pituitary tumor. 6. He has been on long-term disability following work-related injury in 1987. 7. Anxiety/depression. Plan: The CT and PET/CT findings were reviewed with the patient and his , I also reviewed the CT images. Pathology results were reviewed, and we discussed the clinical implications. He has metastatic non-small cell lung cancer with 2 significant areas of involvement in the liver. He has experienced a significant decline in his performance status. In this situation the only treatment option would be some form of systemic therapy, options which may include standard chemotherapy, immunotherapy, or the combination, depending on the PD-L1 status of the tumor. The other option would be a targeted therapy if an actionable mutation were identified, but that would be unlikely for squamous cell carcinoma. We discussed the fact that poor performance status correlates with poor outcomes with chemotherapy in the treatment of metastatic non-small cell lung cancer, and in his situation chemotherapy or a chemotherapy/immunotherapy combination would not be appropriate. If his tumor were to show high PD-L1 expression, immunotherapy alone would be a reasonable treatment option. I would otherwise recommend that he just continue with symptomatic/supportive care. At this point I not have results of the the PD-L1 expression, but as soon as it is available, patient will be contacted and we can make a decision on his further treatment. The overall prognosis, though, does appear to be poor. Signed By: Rock Bella M.D. <<Signature on File>>
== END 2020-08-06 14:00 | disposition home or self-care (01) ==
LOC: ONCMED 14:02
PROVIDERS: PCP Internal Medicine; Visit Provider Internal Medicine Medical Oncology
DX: C34.12 Malignant neoplasm of upper lobe, left bronchus or lung (principal); C78.7 Secondary malignant neoplasm of liver and intrahepatic bile duct; F17.220 Nicotine dependence, chewing tobacco, uncomplicated; F17.211 Nicotine dependence, cigarettes, in remission; J44.9 Chronic obstructive pulmonary disease, unspecified; E89.3 Postprocedural hypopituitarism; F41.8 Other specified anxiety disorders; Z73.6 Limitation of activities due to disability
CPT/HCPCS: 99205

== ENCOUNTER 2020-08-08 06:05 | Outpatient (CLI) | payer MEDICARE, OTHER, SELFPAY ==
[2020-08-08 10:11] LABS: Basophils # 0.1 10^3/uL (0.0-0.1); Basophils % 0.6 %; Eosinophils # 0.1 10^3/uL (0.0-0.8); Eosinophils % 1.1 %; Hematocrit 38.6 % (42.0-52.0); Lymphocytes # 1.6 10^3/uL (0.8-4.8); Lymphocytes % 16.3 %; Mean Corpuscular HGB Conc 31.1 g/dL (30.0-36.0); Mean Corpuscular Volume 90.2 fL (80-94); Mean Platelet Volume 8.4 fL (7.4-10.4); Monocytes # 0.8 10^3/uL (0.2-0.9); Monocytes % 7.9 %; Neutrophils # 7.15 10^3/uL (1.8-7.7); Neutrophils % 72.2 %; Nucleated Red Blood Cells % 0 %; Platelet Count 224 10^3/cmm (130-400); Red Blood Count 4.28 10^6/uL (4.1-5.3); Red Cell Distribution Width 12.6 % (12.1-15.1); White Blood Count 9.9 10^3/uL (4.0-10.0)
[2020-08-08] MEDS: sodium chloride 0.9% 250 ML 125 ML IV (10:15)
[2020-08-08 10:41] LABS: Alanine Aminotransferase 37 U/L (0-41); Albumin Level 3.8 g/dL (3.5-5.2); Alkaline Phosphatase 845 IU/L (40-130); Anion Gap 12.6 (5-19); Aspartate Amino Transferase 49 U/L (0-40); Blood Urea Nitrogen 14 mg/dL (8-23); Calcium 9.1 mg/dL (8.5-10.5); Carbon Dioxide 25 mmol/L (22-29); Chloride 95 mmol/L (98-107); Globulin 2.9 g/dL (1.3-4.6); Glomerular Filtration Rate 84.2 mL/min (90-130); Glucose 100 mg/dL (65-115); Osmolality Calculated 269 mOsm/kg (285-295); Potassium 3.6 mmol/L (3.5-5.1); Sodium 129 mmol/L (136-145); Total Bilirubin 0.5 mg/dL (0.15-1.2); Total Protein 6.7 g/dL (6.6-8.7)
== END 2020-08-08 06:06 | disposition home or self-care (01) ==
LOC: ONCMED 06:07
PROVIDERS: PCP Internal Medicine; Visit Provider Internal Medicine Hematology & Oncology
DX: Z51.12 Encounter for antineoplastic immunotherapy (principal); C34.12 Malignant neoplasm of upper lobe, left bronchus or lung; C78.7 Secondary malignant neoplasm of liver and intrahepatic bile duct; Z51.81 Encounter for therapeutic drug level monitoring; Z79.899 Other long term (current) drug therapy
CPT/HCPCS: 80053; 84443; 85025; 96413; J7050; J9271

== ENCOUNTER 2020-08-27 05:57 | Outpatient (CLI) | payer MEDICARE, OTHER, SELFPAY ==
[2020-08-27 09:58] LABS: Basophils # 0.1 10^3/uL (0.0-0.1); Basophils % 0.6 %; Eosinophils # 0.1 10^3/uL (0.0-0.8); Eosinophils % 0.6 %; Hemoglobin 11.9 g/dL (11.7-16.6); Lymphocytes # 1.1 10^3/uL (0.8-4.8); Lymphocytes % 12.4 %; Mean Corpuscular HGB Conc 30.5 g/dL (30.0-36.0); Mean Corpuscular Hemoglobin 27.2 pg (28.0-34.0); Mean Platelet Volume 8.4 fL (7.4-10.4); Monocytes # 0.5 10^3/uL (0.2-0.9); Monocytes % 5.1 %; Neutrophils % 79.2 %; Nucleated Red Blood Cells % 0 %; Platelet Count 229 10^3/cmm (130-400); Red Blood Count 4.38 10^6/uL (4.1-5.3); Red Cell Distribution Width 13.3 % (12.1-15.1)
[2020-08-27 10:13] LABS: Alanine Aminotransferase 27 U/L (0-41); Albumin Level 3.9 g/dL (3.5-5.2); Alkaline Phosphatase 734 IU/L (40-130); Aspartate Amino Transferase 46 U/L (0-40); Blood Urea Nitrogen 15 mg/dL (8-23); Carbon Dioxide 26 mmol/L (22-29); Chloride 97 mmol/L (98-107); Globulin 2.9 g/dL (1.3-4.6); Glomerular Filtration Rate 66.8 mL/min (90-130); Glucose 81 mg/dL (65-115); Osmolality Calculated 282 mOsm/kg (285-295); Sodium 136 mmol/L (136-145); Total Bilirubin 0.5 mg/dL (0.15-1.2); Total Protein 6.8 g/dL (6.6-8.7)
[2020-08-27 10:17] LABS: Anion Gap 16.9 (5-19); Potassium 3.9 mmol/L (3.5-5.1)
[2020-08-27 14:03] LABS: Thyroid Stimulating Hormone 0.42 uIU/mL (0.27-4.20)
--- NOTE | 2020-09-02 09:42 | ONC FU_ITS ---
[facility] Patient Note Patient: Pernell Watson Unit #: [id number]: 1950 Dictated By: aMtt GilletteDate of Visit: Aug 27, 2020 Onc MED Follow-Up/Prog Note Chief Complaint: Lung cancer. 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 He has been on long-term disability due to a work-related injury in 1987. 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 He has COPD associated with history of smoking up to 3 packs of cigarettes daily for 45 years. He did quit smoking 2 years ago. On 07/07/2020 he had a screening chest CT scan. It showed a spiculated mass centered at the left hilum and extending into the left upper lobe. It measured 5.5 x 3.3 cm and it was noted to abut the mid fissure. There was encasement and mild narrowing of the proximal left upper lobe bronchus. He was seen in the emergency room the following day, and a diagnostic chest CT at that time showed additional finding metastatic lesions in the liver, including a posterior right hepatic lobe lesion measuring 8.2 x 9.2 cm and a medial left hepatic lobe lesion measuring 5.2 x 4.0 cm. Staging PET/CT on 07/12/2020 showed FDG avid spiculated left upper lobe perihilar mass measuring 3.2 x 3.3 cm, SUV 21.0, with high probability of malignancy. An adjacent left hilar lymph node measuring 2.0 cm with SUV 18.4, consistent with metastatic disease. A centrally necrotic right hepatic mass measuring 7.3 x 9.9 cm had SUV 23.0 and a secondary mass in the hepatic segment 4b measuring 4.9 x 4.5 cm and SUV 19.2, consistent with hepatic metastatic disease. A 1 cm central mesenteric lymph node had SUV 5.0, metastatic disease not excluded. 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 He had seen Dr. Yang to discuss those results. At that point his overall condition had declined significantly, and in the setting of metastatic non-small cell lung cancer with poor performance status, he opted to just continue with symptomatic/supportive care. Subsequent to that visit he was encouraged by his family to seek treatment, and he was seen by Dr Bella for further discussion of his treatment options. In the meantime, Dr. Yang had requested a PD-L1 expression on the biopsy In the PD-L1 was reported as high. In that setting Dr. Bella did offer him treatment with immunotherapy???pembrolizumab. Mr. Watson began his first treatment on August 08, 2020. He is here today for follow-up. He is due for his second cycle of pembrolizumab. He states overall he is doing about the same. He states that he is not any worse than what he was but is not sure he is a whole lot better either. He states he still tired. His appetite is some better. He is doing things around the house a little. But not back to his normal activities. He denies any fever or chills. He denies any new shortness of breath orthopnea. He denies any cough or hemoptysis. He denies any diarrhea or abdominal pain. He states his bladder is normal for him. He denies any neuropathy symptoms. His ECOG is 3. Past Medical History: Anxiety Chronic obstructive pulmonary disease Depression Betancourt-hypopituitarism Past Surgical History: Hernia repair Ultrasound directed needle biopsy of the liver in 2019 Back surgery x3 in 2017 Hypophysectomy (Benign) in 1997 Allergies: No Known Allergies. Medications: Ativan 1 Tablet (of 0.5 mg) Oral q 4 hours PRN Desmopressin Acetate 1 (0.2 mg) Tablet Oral b.i.d. Hydrocortisone 2 Tablet (of 10 mg) Oral b.i.d. Levothyroxine Sodium 1 (75 mcg) Tablet Oral daily Family History: Mr. Watson's mother is : Lung Cancer at age 67. Mr. Watson's father is : Head and Neck at age 84. Father at age 84, apparently of some type of head/neck cancer. Mother with lung cancer at age 67. A 63-year-old brother is in good health. Social History: Mr. Watson is and he is a disabled. Mr. Watson quit smoking 2 years ago but had smoked 1.0 pack/day for 45 years. He drinks occasionally. He consumes 2 drinks/day. He has indicated exposure to the following products: cigarettes and chewing tobacco. Mr. Watson reports the following support systems: lives with spouse, significant other, family, or friends. He indicates his activity level as: sedentary. He had previously been employed as a painter and body work. He is disabled. He has a history of smoking for 45 years, up to 3 packs of cigarettes daily. He quit smoking 2 years ago. He still chews 1 can of tobacco daily. Alcohol use is estimated at 1 ounce of whiskey every 2 days. Review Of Symptoms: Constitutional Denies fevers, chills, night sweats. He has excessive fatigue but is stable at present. Allergic/Immunologic No reactions. Eyes Denies significant visual changes. No diplopia. No amaurosis. ENMT Denies changes in hearing, sore throat, mouth sores, difficulty or changes in swallowing ability, and/or sinus drainage. Endocrine No diabetes, thyroid disease or hormone replacement. Denies hot flashes or night sweats. Hematologic/Lymphatic Denies easy bruising or bleeding. The patient denies any tender or palpable lymph nodes. Respiratory Denies worsening dyspnea on exertion, chest pain, cough or hemoptysis. Denies orthopnea. Cardiovascular Denies anginal chest pain, palpitations or orthopnea. Gastrointestinal Denies nausea, vomiting, diarrhea, GI bleeding, or constipation. Denies change in bowel habits and/or stool color, no heartburn or early satiety. Genitourinary (M) Denies hematuria, dysuria, increased frequency, urgency, hesitancy or incontinence. Musculoskeletal Denies joint pain, swelling or redness. No decreased range of motion. Generalized weakness. Integumentary Denies chronic rashes, inflammation, ulcerations or skin changes. Neurologic Denies headache, blurred vision, and no areas of focal weakness or numbness. No sensory problems. Psychiatric Denies insomnia, depression, chuy or mood swings. Vital Signs: Performed on Aug 27, 2020 11:05 Height - 68.00 in Weight - 179.6 lbs (HIGH) BSA - 1.95 sq.m BMI - 27.31 Temperature - 97.5 F (LOW) Pulse - 95 /min Respiration - 24 /min BP - 106/62 mm(hg) O2 Sat - 97 % Pain - 7,3 - Capable of only limited self-care, confined to bed or chair more than 50% of waking hours. (ECOG) Physical Examination: Constitutional Alert, oriented, no acute distress. Skin pink, warm and dry. Head Normocephalic; atraumatic. Eyes Conjunctivae and sclerae are clear and without icterus. Pupils are reactive and equal. Neck Supple without masses or thyromegaly. No jugular venous distension. Hematologic/Lymphatic No petechiae or purpura. No tender or palpable lymph nodes in the cervical or supraclavicular areas. Respiratory Lungs are clear to auscultation without rhonchi or wheezing. Cardiovascular Regular rate and rhythm of heart without murmurs,clicks, gallops or rubs. Abdomen Non-tender, non-distended, no masses or ascites. Good bowel sounds noted in all quads. No guarding or rebound tenderness. No pulsatile masses. Back/Spine Non-tender to palpation. Extremities No visible deformities, no cyanosis, clubbing or edema. Musculoskeletal No tenderness or swelling, normal range of motion without obvious weakness. Integumentary No rashes or lesions. Neurologic No sensory or motor deficits, normal cerebellar function. He presents in a wheelchair today due to weakness and therefore his gait was not assessed. Psychiatric Alert and oriented times three. Coherent speech. Verbalizes understanding of our discussions today. Laboratory:Test performed on Aug 27, 2020 09:42 Sodium 136 mmol/L TSH 0.42 uIU/mL Potassium 3.9 mmol/L Chloride 97 mmol/L CO2 26 mmol/L Anion Gap 16.9 BUN 15 mg/dL Creatinine 1.1 mg/dL Cr Clearance (Est) 75.09 mL/min eGFR 66.8 mL/min Glucose 81 mg/dL Osmolality - Calculated 282 mOsm/kg Calcium 9.0 mg/dL Protein, Total 6.8 g/dL Albumin 3.9 g/dL Globulin 2.9 g/dL Bilirubin, Total 0.5 mg/dL ALT (SGPT) 27 U/L AST (SGOT) 46 U/L Alkaline Phosphatase 734 IU/L WBC 9.0 10 3/uL RBC 4.38 10 6/uL HGB 11.9 g/dL HCT 39.0 % MCV 89.0 fL MCH 27.2 pg MCHC 30.5 g/dL RDW 13.3 % Platelet Count 229 10 3/cmm MPV 8.4 fL Neutrophils 7.10 10 3/uL Lymphocytes 1.1 10 3/uL Monocytes 0.5 10 3/uL Eosinophils 0.1 10 3/uL Basophils 0.1 10 3/uL Neutrophil % 79.2 % Lymphocyte % 12.4 % Monocyte % 5.1 % Eosinophil % 0.6 % Basophils % 0.6 % NRBC % 0 % Impression: 1. Patient with non-small cell carcinoma lung cancer involving the left hilum/left upper lobe, stage IVB (T3, N1, M1c). 2. He underwent ultrasound directed needle biopsy of the liver on 07/18/2020. 3. He has poor performance status (ECOG 3). His other medical illnesses include: 4. COPD. 5. Panhypopituitarism following excision of benign pituitary tumor. 6. He has been on long-term disability following work-related injury in 1987. 7. Anxiety/depression. The CT and PET/CT findings were reviewed with the patient and his per Dr Bella. He also reviewed the pathology results and discussed the clinical implications. He has metastatic non-small cell lung cancer with 2 significant areas of involvement in the liver. He has experienced a significant decline in his performance status. In this situation the only treatment option would be some form of systemic therapy, options which may include standard chemotherapy, immunotherapy, or the combination, as his PD-L1 status was reported as high. The other option would be a targeted therapy if an actionable mutation were identified, but that would be unlikely for squamous cell carcinoma. Dr Bella discussed the fact that poor performance status correlates with poor outcomes with chemotherapy in the treatment of metastatic non-small cell lung cancer, and in his situation chemotherapy or a chemotherapy/immunotherapy combination would not be appropriate. As his tumor did show high PD-L1 expression, immunotherapy alone would be a reasonable treatment option. Otherwise, Dr Bella recommend that he just continue with symptomatic/supportive care. Mr Watson began his first dose of pembrolizumab on August 08, 2020. Plan: 1. Proceed with cycle 2 pembrolizumab at 200 mg. 2. Supportive care as needed. 3. Labs from today were reviewed in detail and discussed with . Mrs. Watson and a copy was given to them. WBC 9.0, hemoglobin 11.9, platelets 229,000 ANC 7100. Potassium 3.9 creatinine 1.1 sodium 136 alk phos is down to 734. It was 845 on August 08, 2020. His TSH on August 08 was normal at 0.8. His TSH from today is pending at time of visit. 4. We will plan to see him back in 3 weeks with CBC, CMP and TSH for consideration of cycle 3 pembrolizumab. 5. . Mrs. Watson were encouraged to contact us in interim if any questions or problems arise. 6. Specific side effects of immunotherapy discussed included but not limited to: ??? pneumonitis: new or worsening cough; chest pain; and shortness of breath. ??? Colitis: diarrhea or more bowel movements than usual; blood in stools or dark, tarry, sticky stools; and severe stomach area (abdomen) pain or tenderness. ??? Encephalitis: confusion, headaches, mental status changes, disorientation * hepatitis: jaundice; severe nausea or vomiting; pain on the right side of the abdomen; drowsiness; dark urine; bleeding or bruise more easily than normal. ??? nephritis and kidney failure: including decrease in the amount of urine; hematuria; lower extremity edema; and loss of appetite. ??? thyroid and pituitary changes that may include: headaches that will not go away or unusual headaches; extreme tiredness, weight gain or weight loss; changes in mood or behavior, such as decreased sex drive, irritability, or forgetfulness; dizziness or fainting; hair loss; feeling cold; constipation; and voice gets deeper. ???rash; changes in eyesight; severe or persistent muscle or joint pains; and severe muscle weakness. Signed By: Matt Gillette-, AOCNP Rock Bella MD <<Signature on File>>
== END 2020-08-27 05:58 | disposition home or self-care (01) ==
LOC: ONCMED 05:59
PROVIDERS: PCP Internal Medicine; Visit Provider Nurse Practitioner
DX: Z51.12 Encounter for antineoplastic immunotherapy (principal); C34.12 Malignant neoplasm of upper lobe, left bronchus or lung; C78.7 Secondary malignant neoplasm of liver and intrahepatic bile duct; J44.9 Chronic obstructive pulmonary disease, unspecified; E89.3 Postprocedural hypopituitarism; F41.8 Other specified anxiety disorders; Z87.828 Personal history of other (healed) physical injury and trauma; Z79.899 Other long term (current) drug therapy; Z87.891 Personal history of nicotine dependence
CPT/HCPCS: 80053; 84443; 85025; 96413; 99214; J7050; J9271

== ENCOUNTER 2020-09-19 05:50 | Outpatient (RCR) | payer MEDICARE, OTHER, SELFPAY ==
[2020-09-17 09:24] LABS: Basophils # 0.1 10^3/uL (0.0-0.1); Basophils % 0.9 %; Eosinophils # 0.1 10^3/uL (0.0-0.8); Eosinophils % 1.3 %; Hematocrit 38.7 % (42.0-52.0); Hemoglobin 12.1 g/dL (11.7-16.6); Lymphocytes # 1.8 10^3/uL (0.8-4.8); Lymphocytes % 21.1 %; Mean Corpuscular HGB Conc 31.3 g/dL (30.0-36.0); Mean Corpuscular Hemoglobin 27.1 pg (28.0-34.0); Mean Corpuscular Volume 86.6 fL (80-94); Mean Platelet Volume 8.2 fL (7.4-10.4); Monocytes # 0.6 10^3/uL (0.2-0.9); Neutrophils # 5.76 10^3/uL (1.8-7.7); Neutrophils % 67.5 %; Nucleated Red Blood Cells % 0 %; Platelet Count 203 10^3/cmm (130-400); Red Blood Count 4.47 10^6/uL (4.1-5.3); Red Cell Distribution Width 14.5 % (12.1-15.1); White Blood Count 8.5 10^3/uL (4.0-10.0)
[2020-09-17 10:01] LABS: Alanine Aminotransferase 22 U/L (0-41); Albumin Level 3.9 g/dL (3.5-5.2); Alkaline Phosphatase 660 IU/L (40-130); Anion Gap 18.5 (5-19); Aspartate Amino Transferase 45 U/L (0-40); Blood Urea Nitrogen 15 mg/dL (8-23); Calcium 9.5 mg/dL (8.5-10.5); Carbon Dioxide 25 mmol/L (22-29); Chloride 94 mmol/L (98-107); Glomerular Filtration Rate 66.8 mL/min (90-130); Glucose 74 mg/dL (65-115); Osmolality Calculated 277 mOsm/kg (285-295); Potassium 3.5 mmol/L (3.5-5.1); Sodium 134 mmol/L (136-145); Thyroid Stimulating Hormone 0.38 uIU/mL (0.27-4.20); Total Bilirubin 0.4 mg/dL (0.15-1.2); Total Protein 6.9 g/dL (6.6-8.7)
[2020-09-17] MEDS: famotidine 20 mg/2 mL INJ IVP (11:08)
[2020-09-17] MEDS: ondansetron 2 mg/ML SDV 2 mL 8 MG IV (11:10)
[2020-09-17] MEDS: sodium chloride 0.9% 1,000 ML 999 ML IV (11:30)
[2020-09-19] MEDS: famotidine 20 mg/2 mL INJ IVP (09:37)
[2020-09-19] MEDS: ondansetron 2 mg/ML SDV 2 mL 8 MG IV (09:38)
[2020-09-19] MEDS: sodium chloride 0.9% 1,000 ML 999 ML IV (09:58)
--- NOTE | 2020-09-19 17:01 | ONC FU_ITS ---
Dr. Bella Patient Follow-Up Note Patient: Pernell Watson Unit #: [id number]: 1950 Dicatated By: Rock Bella M.D.Date of Visit:Sep 17, 2020 Onc Med Follow-up/Prog Note Chief Complaint: Lung cancer. 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 His tumor was found to have high PDL-1 IHC 22C3 expression at 50%. He has been on long-term disability due to a work-related injury in 1987. 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 He has COPD associated with history of smoking up to 3 packs of cigarettes daily for 45 years. He did quit smoking 2 years ago. On 07/07/2020 he had a screening chest CT scan. It showed a spiculated mass centered at the left hilum and extending into the left upper lobe. It measured 5.5 x 3.3 cm and it was noted to abut the mid fissure. There was encasement and mild narrowing of the proximal left upper lobe bronchus. He was seen in the emergency room the following day, and a diagnostic chest CT at that time showed additional finding metastatic lesions in the liver, including a posterior right hepatic lobe lesion measuring 8.2 x 9.2 cm and a medial left hepatic lobe lesion measuring 5.2 x 4.0 cm. Staging PET/CT on 07/12/2020 showed FDG avid spiculated left upper lobe perihilar mass measuring 3.2 x 3.3 cm, SUV 21.0, with high probability of malignancy. An adjacent left hilar lymph node measuring 2.0 cm with SUV 18.4, consistent with metastatic disease. A centrally necrotic right hepatic mass measuring 7.3 x 9.9 cm had SUV 23.0 and a secondary mass in the hepatic segment 4b measuring 4.9 x 4.5 cm and SUV 19.2, consistent with hepatic metastatic disease. A 1 cm central mesenteric lymph node had SUV 5.0, metastatic disease not excluded. 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 He had seen Dr. Yang to discuss those results. At that point his overall condition had declined significantly, and in the setting of metastatic non-small cell lung cancer with poor performance status, he opted to just continue with symptomatic/supportive care. Subsequent to that visit he was encouraged by his family to seek treatment, and he is seen here today for further discussion of his treatment options. In the meantime, Dr. Yang requested a PD-L1 expression on the biopsy, and his tumor was found to have high PDL-1 IHC 22C3 expression at 50%. I had seen him initially on 08/06/2020. He had very poor performance status. However, in the setting of high PD-L1 expression, he was given the option to go undergo a trial of immunotherapy with pembrolizumab. He began cycle 1 of pembrolizumab on 08/27/2020 at a standard dose of 200 mg by IV infusion. He tolerated it without acute toxicity. He is seen for a follow-up visit. He has been extremely weak and he has very little activity. His ECOG score is 3. He has been very nauseated and he has very poor appetite and oral intake. His weight, though, is up a couple of pounds. He does not have fever or night sweats. He is very short of breath with any activity. He has cough productive of yellow to greenish sputum. He complains of having pressure in his chest. His bowel function varies between constipation and diarrhea. Bladder function has been okay. He has no significant joint or bone pain. He does not complain of headache. He does have some lightheadedness. He also reports having some numbness in his hands. Medications: Ativan 1 Tablet (of 0.5 mg) Oral q 4 hours PRN, Desmopressin Acetate 1 (0.2 mg) Tablet Oral b.i.d., HYDROcodone-Acetaminophen 1 Tablet (of 5-325 mg) Oral q 4 hours PRN, Hydrocortisone 2 Tablet (of 10 mg) Oral b.i.d., Levothyroxine Sodium 1 (75 mcg) Tablet Oral daily Allergies: No Known Allergies. Review of Systems: Constitutional - He is extremely weak and he has very limited activity. Appetite is poor, and he has very little oral intake. His weight is up a little. He does not have fever or night sweats. ECOG score is 3, ENMT - He has occasional sinus drainage. No mouth sores. No sore throat or difficulty swallowing, Hematologic/Lymphatic - He has bruising on his arms, Respiratory - He is very short of breath with any activity. He has cough productive of yellow to greenish phlegm. No pleuritic pain or hemoptysis, Cardiovascular - He has pressure in his chest. No palpitations, Gastrointestinal - He is very nauseated. He has occasional acid reflux. Bowel function varies between constipation and diarrhea. No blood in the stool or black stools, Genitourinary (M) - No dysuria or hematuria. No urinary frequency. No urgency or incontinence, Musculoskeletal - No significant joint or bone pain, Integumentary - No skin rash, Neurologic - No headache. He has lightheadedness. He has numbness in his hands. No other focal neurologic symptoms, Psychiatric - He has anxiety/depression. Recently he has been having difficulty sleeping. Vital Signs: Performed on Sep 17, 2020 10:05 Height - 68.00 in Weight - 181.2 lbs (HIGH) BSA - 1.96 sq.m BMI - 27.55 Temperature - 97.6 F (LOW) Pulse - 87 /min Respiration - 24 /min BP - 141/80 mm(hg) (HIGH) O2 Sat - 100 % Pain - 0 Physical Examination: Constitutional - He appears very weak generally and he looks pale, Eyes - Sclerae nonicteric. Conjunctivae clear, ENMT - No lesions noted in the oral cavity, Hematologic/Lymphatic - No cervical, clavicular, or axillary adenopathy, Respiratory - Lungs show diminished breath sounds bilaterally, worse on the right. There is slight wheezing in the left lung field, Cardiovascular - Heart rhythm is regular. There is no murmur, gallop, or rub noted, Abdomen - Mildly distended. There is mild tenderness in the right upper quadrant. Liver is not overtly enlarged or tender. Spleen is not palpable. There is no abdominal mass or ascites noted and there is no inguinal adenopathy, Extremities - No edema, Neurologic - No focal neurologic deficits noted. Lab/Imaging: Test performed on Sep 17, 2020 08:50 Sodium 134 mmol/L TSH 0.38 uIU/mL Potassium 3.5 mmol/L Chloride 94 mmol/L CO2 25 mmol/L Anion Gap 18.5 BUN 15 mg/dL Creatinine 1.1 mg/dL Cr Clearance (Est) 75.76 mL/min eGFR 66.8 mL/min Glucose 74 mg/dL Osmolality - Calculated 277 mOsm/kg Calcium 9.5 mg/dL Protein, Total 6.9 g/dL Albumin 3.9 g/dL Globulin 3.0 g/dL Bilirubin, Total 0.4 mg/dL ALT (SGPT) 22 U/L AST (SGOT) 45 U/L Alkaline Phosphatase 660 IU/L WBC 8.5 10 3/uL RBC 4.47 10 6/uL HGB 12.1 g/dL HCT 38.7 % MCV 86.6 fL MCH 27.1 pg MCHC 31.3 g/dL RDW 14.5 % Platelet Count 203 10 3/cmm MPV 8.2 fL Neutrophils 5.76 10 3/uL Lymphocytes 1.8 10 3/uL Monocytes 0.6 10 3/uL Eosinophils 0.1 10 3/uL Basophils 0.1 10 3/uL Neutrophil % 67.5 % Lymphocyte % 21.1 % Monocyte % 7.0 % Eosinophil % 1.3 % Basophils % 0.9 % NRBC % 0 % Impression: 1. Patient with non-small cell carcinoma lung cancer involving the left hilum/left upper lobe, stage IVB (T3, N1, M1c). His tumor was found to have high PD-L1 expression at 50%. 2. He underwent ultrasound directed needle biopsy of the liver on 07/18/2020. 3. He has poor performance status (ECOG 3). His other medical illnesses include: 4. COPD. 5. Panhypopituitarism following excision of benign pituitary tumor. 6. He has been on long-term disability following work-related injury in 1987. 7. Anxiety/depression. Although he has very poor performance status, with high PD-L1 expression he was offered the option to undergo a trial of immunotherapy with pembrolizumab. He began cycle 1 on 08/27/2020. He tolerated it without acute toxicity. He has since then remained very weak generally. He is having severe nausea and he has very poor appetite and oral intake. On his laboratory studies, his blood counts remain adequate. His baseline alkaline phosphatase level was significantly elevated, and that has come down a little bit. Plan: He is motivated to continue treatment, so he will proceed with cycle 2 of pembrolizumab at 200 mg by IV infusion. He will be given additional IV hydration today and again on Tuesday and thereafter as needed. I also will give him a little extra steroid. He will start Protonix 40 mg daily I also will have him start dronabinol at 2.5 mg twice daily. He will be scheduled for a follow-up visit in 3 weeks. Signed By: Rock Bella M.D. <<Signature on File>>
== END 2020-10-09 23:59 | disposition home or self-care (01) ==
LOC: ONCMED 05:50
PROVIDERS: Nurse Practitioner; PCP Internal Medicine; Visit Provider Internal Medicine Medical Oncology
DX: Z51.12 Encounter for antineoplastic immunotherapy (principal); C34.12 Malignant neoplasm of upper lobe, left bronchus or lung; C78.7 Secondary malignant neoplasm of liver and intrahepatic bile duct; J44.9 Chronic obstructive pulmonary disease, unspecified; E23.0 Hypopituitarism; F41.8 Other specified anxiety disorders; Z79.899 Other long term (current) drug therapy
CPT/HCPCS: 80053; 84443; 85025; 96361; 96365; 96367; 96375; 96413; 99214; J1100; J2405; J3490; J7030; J7050; J9271